=== PATIENT | male | born 1945 | race Caucasian/White ===

== ENCOUNTER → 2017-04-26 | Outpatient (CLI) | payer OTHER ==
[~2017-04-26] MED LIST: BACTRIM DS 8001 TAB PO; CHOLESTEROL MED; PLAVIX 75MG TAB75 MG PO; TENORMIN 5050 MG/TAB PO
== END ==
LOC: MHCPAIN 14:45
DX: G89.29 Other chronic pain (principal); M79.2 Neuralgia and neuritis, unspecified; M79.1 Myalgia; G89.3 Neoplasm related pain (acute) (chronic); F17.210 Nicotine dependence, cigarettes, uncomplicated
CPT/HCPCS: G0463